=== PATIENT | female | born 1950 | race Caucasian/White ===

== ENCOUNTER 2022-01-15 10:52 | Emergency (ER) | payer MEDICARE, SELFPAY ==
--- NOTE | ~2022-01-15 | XR_ITS ---
XR cervical spine 4-5V 01/15/2022 12:37 Indication: Neck pain after fall Procedure: 4 view cervical spine Comparison: No prior studies for comparison. Findings: There is moderate multilevel facet and uncinate hypertrophy. There is degenerative disc dis ease at C3-4, C5-6 and C6-7. There is degenerative anterolisthesis at C4-5. Lung apices are normal. O dontoid process is normal. Lateral masses normally aligned. No prevertebral soft tissue swelling. No acute fracture is identified. Impression: 1: Moderate-severe cervical spondylosis. Reviewed, dictated and finalized at location A. Impression: 1: Moderate-severe cervical spondylosis.
--- NOTE | ~2022-01-15 | XR_ITS ---
XR shoulder LT min 2V 01/15/2022 12:36 Indication: Generalized shoulder pain Procedure: 4 views left shoulder Comparison: No prior studies for comparison. 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 Osteopenia. No fracture, sublux ation or dislocation. Surrounding soft tissues and osseous structures are unremarkable. Impression: 1: No acute fracture. Reviewed, dictated and finalized at location A. Impression: 1: No acute fracture.
--- NOTE | ~2022-01-15 | XR_ITS ---
XR forearm LT 2V 01/15/2022 12:35 Indication: Left wrist pain Procedure: 2 views left forearm Comparison: No prior studies for comparison. Findings: There is a nondisplaced radial styloid fracture. There is polyarticular osteoarthritis of t he wrist and first finger. No soft tissue abnormality. No foreign bodies. Impression: 1: Nondisplaced radial styloid fracture. Reviewed, dictated and finalized at location A. Impression: 1: Nondisplaced radial styloid fracture.
[2022-01-15 11:13] VITALS: BP 142/89; PULSE 78; RESP 16; TEMP 37.1; O2SAT 100
--- NOTE | 2022-01-15 13:23 | ED.FALL ---
HPI - Fall General Chief Complaint: Extremity Injury, Upper Stated Complaint: Fall Injury/Left Wrist/Shoulder Time Seen by Provider: 01/15/22 12:30 Source: patient, family, RN notes reviewed and old records reviewed Mode of arrival: ambulatory Limitations: no limitations History of Present Illness HPI Narrative: 71 year old female accompanied by friend presents to [facility] with complaints of having a fall last evening from standing position at the [facility]. Patient states she either tripped on something or tripped over her feet and landed on her left shoulder and arm with some discomfort noted to the left wrist area, shoulder and left neck. Patient has obvious swelling bruising deformity noted to the radial aspect of her left wrist with inability to flex or extend at the wrist strong pulses present to wrist area. Patient does have full movement of her neck with some soreness to the to the left side of her neck with pain to the left shoulder and decreased mobility of left shoulder. MD complaint: fall Onset (ago): hour(s) (last evening) Fall from: standing Fall witnessed: yes, by family Place fall occurred: other ([facility] [place]) Loss of consciousness: none Severity scale (1-10): 8 Related Data Home Medications Medication Instructions Recorded Confirmed albendazole 200 mg tablet See Rx Instructions .Route .COMPLEX 01/15/22 01/15/22 alendronate 70 mg tablet See Rx Instructions .Route .COMPLEX 01/15/22 01/15/22 atorvastatin 40 mg tablet 40 mg PO DAILY 01/15/22 01/15/22 furosemide 20 mg tablet 20 mg PO DAILY 01/15/22 01/15/22 hydroxyzine HCl 25 mg tablet 25 mg PO TID PRN Anxiety 01/15/22 01/15/22 trazodone 100 mg tablet 100 mg PO HS PRN Sleep 01/15/22 01/15/22 Allergies Allergy/AdvReac Type Severity Reaction Status Date / Time codeine AdvReac Nausea and Verified 01/15/22 12:14 Vomiting Review of Systems Review of Systems: CONSTITUTIONAL: Denies fever, chills, or sweats. CARDIOVASCULAR: Denies chest pain, palpitations, or edema. RESPIRATORY: Denies cough or dyspnea SKIN: Denies rash or itching. Denies lacerations or abrasions MUSCULOSKELETAL: Reports pain to the left radial side of her wrist with swelling bruising decreased range of motion, some decreased range of motion to left shoulder related to pain. Injury sustained during full NEUROLOGIC: Denies numbness, or weakness. All systems reviewed & are unremarkable except as noted in HPI and below PMFSH Past Medical History Medical History (Updated 01/21/22 @ 13:30 by Rosenda Szymanski NP) Arthritis Breast cancer COPD (chronic obstructive pulmonary disease) Osteopenia Surgical History Surgical History (Updated 01/15/22 @ 13:38 by Rosenda Szymanski NP) History of section S/P bilateral foot surgery Status post left breast lumpectomy Chemo and radiation 2008 Social History Social History (Updated 01/15/22 @ 13:38 by Rosenda Szymanski NP) Smoking status: Former smoker Tobacco type: cigarettes Additional smoking assessment comments: Quit 2009 Alcohol intake: current Alcohol use details: Social Substance use: never Gender identity (if verbalized by the patient): Female Comments At time of signature, agree with nursing past medical, surgical, social and family history. There is no relevant family history pertinent to the presenting complaint Exam Narrative: GENERAL: Well-appearing, well-nourished, and in some acute distress related to pain. HEAD: Normocephalic, atraumatic. EYES: PERRLA and EOMI. ENT: Nares clear, no rhinorrhea or epistaxis. Mucous membranes moist. NECK: Supple. No lymphadenopathy, pain to left side of neck with movement. CHEST: Clear to auscultation. No distress.SAO2 100% on room air HEART: Regular rate and rhythm. No murmur heard. Normal peripheral pulses. ABDOMEN: Soft, nontender, nondistended, normal active bowel sounds. EXTREMITIES: Decreased range of motion. With edema and bruising to
== END 2022-01-15 13:45 | disposition home or self-care (01) ==
PROVIDERS: Emergency Provider Registered Nurse
DX: S52.515A Nondisplaced fracture of left radial styloid process, initial encounter for closed fracture (principal); W19.XXXA Unspecified fall, initial encounter; S40.012A Contusion of left shoulder, initial encounter; S16.1XXA Strain of muscle, fascia and tendon at neck level, initial encounter; J44.9 Chronic obstructive pulmonary disease, unspecified; M85.80 Other specified disorders of bone density and structure, unspecified site; Z85.3 Personal history of malignant neoplasm of breast; Z87.891 Personal history of nicotine dependence
CPT/HCPCS: 29125; 72050; 73030; 73090; 99214; A4565; G0463